=== PATIENT | male | born 1985 | race American Indian/Alaskan Native ===

== ENCOUNTER 2016-09-22 08:12 | Emergency (ER) | payer MEDICAID ==
[2016-09-22 08:24] VITALS: BP 165/99
[2016-09-22] MEDS ORDERED: IBUPROFEN 800MG TABLET PO ONE (09:45)
== END 2016-09-22 10:06 | disposition home or self-care (01) ==
LOC: ER 08:12
DX: J06.9 Acute upper respiratory infection, unspecified (principal); H65.91 Unspecified nonsuppurative otitis media, right ear; H10.89 Other conjunctivitis; A49.9 Bacterial infection, unspecified; F17.290 Nicotine dependence, other tobacco product, uncomplicated
CPT/HCPCS: 99283

== ENCOUNTER 2016-09-23 22:21 | Emergency (ER) | payer MEDICAID ==
[~2016-09-23] VITALS: Ht 185.4 cm; Wt 165.9 kg
[2016-09-23 22:32] VITALS: BP 175/94
== END 2016-09-24 02:09 | disposition left against medical advice (07) ==
LOC: ER 22:22
DX: H92.01 Otalgia, right ear (principal); Z53.21 Procedure and treatment not carried out due to patient leaving prior to being seen by health care provider